=== PATIENT | male | born 1955 | race African-American/Black ===

== ENCOUNTER → 2016-08-31 | Outpatient (CLI) | payer MEDICARE, BC ==
[~2016-08-31] MED LIST: AMOXICILLIN500 M1 PO; ASPIRIN PO; ASPIRIN81 M1 PO; ASPIRIN81 M2 PO; ATARAX PO; AUGMENTIN875 MG PO; CALCIUM ACETAT667 MG PO; CIPRO250 MG PO; COMBIVENT U/D3 ML INH; COZAAR100 MG PO; GENTLE LAX PO; IBUPROFEN200 M1 PO; IBUPROFEN400 MG PO; LASIX PO; LASIX80 MG PO; LIPITOR PO; LISINOPRIL PO; LORATADINE PO; LOVAZA PO; NEPHROCAPS CAPSU1 MG PO; NORVASC PO; NORVASC10 MG PO; OMEGA 3 FISH OI1 CAP PO; PHOSLO667 M1 PO; PHOSLO667 MG PO; PRILOSEC PO; REBETOL200 MG PO; RENAL SOFTGEL1 MG PO; SOD BICARBONATE PO; SODIUM BICARBO650 MG PO; TESTOSTERONE PO; TRIPHROCAPS SOFT1 MG PO; VANCOMYCIN1.75 GM/50 IV; VIAGRA PO; VITAMIN D-3 PO; VITAMIN D2000 UNIT PO; VITAMIN D31000 UNIT PO; [UNRECOGNIZED DRUG - OTHER]; [UNRECOGNIZED DRUG - OTHER] IJ; [UNRECOGNIZED DRUG - REMARK]
== END | disposition home or self-care (01) ==
LOC: CLAB 15:11
DX: Z51.81 Encounter for therapeutic drug level monitoring (principal); Z79.899 Other long term (current) drug therapy
CPT/HCPCS: 36415; 80307